=== PATIENT | female | born 1970 | race Caucasian/White ===

== ENCOUNTER 2016-10-25 11:47 | Emergency (ER) | payer BC | END 2016-10-25 13:31 | disposition home or self-care (01) | LOC: D.ER 11:47 | DX: F41.9 Anxiety disorder, unspecified (principal); K21.9 Gastro-esophageal reflux disease without esophagitis ==

== ENCOUNTER 2018-01-21 07:30 | Outpatient (CLI) | payer BC ==
[~2018-01-21] VITALS: Ht 160 cm; Wt 75.9 kg
--- NOTE | ~2018-01-21 | HEMODYNAMI ---
PATIENT:ANIVAL AREVALO MEDICAL RECORD: [id number] : 68 LOCATION:DTRACEY ADMISSION DATE: 01/21/18 Generatedon:01/21/20189:50 Patient name: ANIVAL AREVALO Patient #: [id number] SSN: DO B: 1970 Date of study: 01/21/2018 Page: Of Hemodynamic Procedure Report Patient Data Patient Demographics Procedure consent was obtained First Name: ANIVAL Gender: Female Last Name: IRINA : 1970 Middle Initial: SOPHIA Age: 47 year(s) Patient #: [id number] Race: Unknown Additional ID: [id number] Contact details Address: [address] [place] [address] State: [place] City: [place] Zip code: [address] Past Medical History Allergies Allergen Reaction Date Comments Reported MERARI inhibitors 01/21/2018 Admission Admission Data Admission Date: 01/21/2018 Admission Time: 7:30 Procedure Procedure Types Cath Procedure Diagnostic Procedure LHC LHC w/Coronaries FFR/IVUS FFR Initial Sedation Charges Moderate Sedation up to 45 minutes Procedure Description Procedure Date Procedure Date: 01/21/2018 Procedure Start Time: 8:51 Procedure End Time: 9:49 Procedure Staff Name Function Negro Tellez MD Performing Physician Tamara Chaudhry RT Monitor Florian Washington RN Nurse Osiris Carlson RT Scrub Procedure Data Cath Procedure Fluoroscopy Diagnostic fluoroscopy Total fluoroscopy Time: 5 time: 5 min min Diagnostic fluoroscopy Total fluoroscopy dose: 340 dose: 340 mGy mGy Contrast Material Contrast Material Type Amount (ml) Isovue 300 44 Entry Location Entry Primary Successful Side Size Upsize Upsize Entry Closure Liao ccessful Closure Location (Fr) 1 (Fr) 2 (Fr) Remarks Device Remarks Radial Right 6 Fr Mechanical artery Short Compression Femoral Right 5 Fr 6 Fr Exoseal artery Short Estimated blood loss: 5 ml Diagnostic catheters Device Type Used For End Catheter Placement DIAGNOSTIC Wilian 110cm LV Angiography 5Fr catheter ([id number]) MULTIPACK JL 4.0 5Fr Left Coronary catheter Angiography MULTIPACK 3DRC 5Fr Right Coronary catheter Angiography MULTIPACK Pigtail 5 Fr LV Angiography catheter Procedure Complications No complications Procedure Medications Medication Administration Route Dosage 0.9% NaCl I.V. 100 ml/hr Oxygen etCO2 Nasal cannula 2 l/min Heparin Flush Bag added to field 2 bags (1000units/500ml NS) Lidocaine 2% added to field 20 Radial Cocktail added to field 1 syringe (Verapomil 2mg/Nitro 400mcg/Heparin 1500units) Versed I.V. 2 mg Fentanyl I.V. 50 mcg Radial Cocktail I.A. 1 syringe (Verapomil 2mg/Nitro 400mcg/Heparin 1500units) Nitroglycerin IC/IA I.A. 150 mcg Versed I.V. 1 mg Fentanyl I.V. 25 mcg Nitroglycerin IC/IA I.A. 300 mcg Versed I.V. 1 mg Fentanyl I.V. 25 mcg Heparin Bolus I.V. 1000 units Adenosine (mcg) I.V. 140 mcg/kg/min Adenosine (mcg) 140 mcg/kg/min Nitroglycerin IC/IA I.A. 250 mcg Hemodynamics Rest Heart Rate: 85 (bpm) Pressure Samples Time Site Value (mmHg) Purpose Heart Use Rate(bpm) 9:12 AO 101/64(81) Snapshot 86 9:18 LV 132/-12,10 EDP 77 Gradients Valve Time Site Site Mean SEP/DFP Peak To Heart Use 1 2 (mmHg) (sec/min) Peak Rate (mmHg) (bpm) Aortic 9:18 LV AO 82 Snapshots Pre Cath Intra NCS Post Cath Vital Signs Time Heart Resp SPO2 etCO2 NIBP Rhythm Pain Sedation Rate (ipm) (%) (mmHg) (mmHg) Status Level (bpm) 8:45:40 85 19 100 0 115/71(99) NSR 0 (11) 10(A) , No pain 8:50:14 84 15 99 36 124/68(80) NSR 0 (11) 10(A) , No pain 8:54:55 93 14 100 35.2 110/61(87) NSR 0 (11) 10(A) , No pain 8:59:34 92 14 98 29.2 129/57(89) NSR 0 (11) 10(A) , No pain 9:04:10 85 12 99 31.5 130/72(89) NSR 0 (11) 10(A) , No pain 9:08:47 76 15 97 36.7 111/64(89) NSR 0 (11) 10(A) , No pain 9:13:19 84 17 97 36.8 112/74(83) NSR 0 (11) 10(A) , No pain 9:17:56 77 11 99 39 115/64(90) NSR 0 (11) 10(A) , No pain 9:22:32 77 26 100 37.5 125/69(87) NSR 0 (11) 10(A) , No pain 9:27:08 79 21 100 34.5 117/72(87) NSR 0 (11) 10(A) , No pain 9:31:43 83 30 100 35.2 110/67(97) NSR 0 (11) 10(A) , No pain 9:36:20 111 17 100 25.5 110/63(82) NSR 0 (11) 10(A) , No pain 9:40:54 90 16 98 31.5 120/74(93) NSR 0 (11) 10(A) , No pain 9:45:32 69 16 98 18 101/55(79) NSR 0 (11) 10(A) , No pain Medications Time Medication Route Dose Verified Delivered Reason N otes Effectiveness by by 8:43:56 0.9% NaCl I.V. 100 ml/hr Florian Florian Per physician Padmini Washington RN RN 8:44:08 Oxygen etCO2 2 l/min Florian Florian Per physician Nasal Padmini Washington cannula RN RN 8:44:20 Heparin Flush added 2 bags Florian Florian used for Bag to Lorigan Lorigan procedure (1000units/500ml field COURTNEY VALDEZ NS) 8:44:33 Lidocaine 2% added 20ml vial Florian Florian for local to Lorigan Lorigan anesthetic field VALDEZ RN 8:44:47 Radial Cocktail added 1 syringe Florian Florian used for (Verapomil to Lorigan Lorigan procedure 2mg/Nitro field VALDEZ RN 400mcg/Heparin 1500units) 8:50:25 Versed I.V. 2 mg Florian Florian for sedation Padmini Washington RN, RN 8:50:34 Fentanyl I.V. 50 mcg Florian Florian for sedation Lorigan Lorigan RN RN 8:55:35 Radial Cocktail I.A. 1 syringe Florian Negro for (Verapomil Padmini Tellez MD vasodilation 2mg/Nitro RN 400mcg/Heparin 1500units) 9:00:35 Nitroglycerin I.A. 150 mcg Florian Negro for IC/IA Padmini Tellez MD vasodilation RN 9:00:47 Versed I.V. 1 mg Florian Florian for sedation Padmini Washington RN RN 9:00:56 Fentanyl I.V. 25 mcg Florian Florian for sedation Padmini Washington RN RN 9:02:45 Nitroglycerin I.A. 300 mcg Florian Negro for IC/IA Padmini Tellez MD vasodilation RN 9:06:42 Versed I.V. 1 mg Florian Florian for sedation Padmini Washington RN RN 9:06:49 Fentanyl I.V. 25 mcg Florian Florian for sedation Padmini Washington RN RN 9:34:14 Heparin Bolus I.V. 1,000 Florian Florian for units Padmini Washington anticoagulation RN RN 9:34:56 Adenosine (mcg) I.V. 140 Florian Florian Per protocol mcg/kg/min Padmini Washington RN RN 9:37:31 Adenosine (mcg) stopped 140 Florian Florian Per protocol mcg/kg/min Padmini Washington RN RN 9:40:31 Nitroglycerin I.A. 250 mcg Florian Negro for IC/IA Padmini Tellez MD vasodilation performance test architect Log Time Note 8:22:06 Time tracking: Regular hours (M-F 7:00 - 5:00) 8:22:09 Plan of Care:Hemodynamics will remain stable., Cardiac rhythm will remain stable., Comfort level will be maintained., Respiratory function will remain adequate., Patient/ family verbilizes understanding of procedure., Procedure tolerated without complication., Recovers from procedure without complications.. 8:22:14 Tamara Chaudhry RT(R) sent for patient. Start room use. 8:35:28 Patient received from Pre/Post Procedure Room to CCL 1 Alert and oriented. Tansferred to table in Supine position. 8:35:29 Warm blankets applied, and nicci hugger turned on for patient comfort. 8:35:29 Correct patient and procedure confirmed by team. 8:35:31 Signed procedure consent form obtained from patient. 8:35:32 ECG and BP/O2 sat monitors applied to patient. 8:43:56 0.9% NaCl 100 ml/hr I.V. was administered by Florian Washington RN; Per physician; 8:44:08 Oxygen 2 l/min etCO2 Nasal cannula was administered by Florian Washington RN; Per physician; 8:44:20 Heparin Flush Bag (1000units/500ml NS) 2 bags added to field was administered by Florian Washington RN; used for procedure; 8:44:33 Lidocaine 2% 20ml vial added to field was administered by Florian Washington RN; for local anesthetic; 8:44:47 Radial Cocktail (Verapomil 2mg/Nitro 400mcg/Heparin 1500units) 1 syringe added to field was administered by Florian Washington RN; used for procedure; 8:44:54 Vital chart was started 8:47:41 Full Disclosure recording started 8:47:44 Rhythm: sinus rhythm 8:47:49 Baseline sample Acquired. 8:47:53 H&P Date Dictated: 01/21/2018 Within 30 days and on chart., H&P Addendum completed by physician on day of procedure. (MUST COMPLETE FOR ALL OUTPATIENTS). 8:48:33 Pre-procedure instructions explained to patient. 8:48:33 Pre-op teaching completed and patient verbalized understanding. 8:48:35 Family in patients room. 8:48:37 Patient NPO since Midnight. 8:48:44 Patient allergic to MERARI inhibitors 8:48:46 Is the patient allergic to Iodine/contrast media? No. 8:48:49 Is patient on blood thinner?Yes 8:48:51 ACC The patient was administered the following blood thiners within the last 24 hours: ACCPlavix 8:48:54 Patient diabetic? No. 8:49:01 Previous problem with sedation/anesthesia? No ? 8:49:01 Snore? Yes 8:49:02 Sleep apnea? No 8:49:03 Deviated septum? No 8:49:04 Opens mouth fully? Yes 8:49:04 Sticks out tongue? Yes 8:49:06 Airway obstruction? No ? 8:49:13 Dentures? No IMPLANTS 8:49:16 Pre procedure: right dorsailis pedis pulse 2+ Normal; easily identifiable; not easily obliterated 8:49:18 Modified Malachi's test Ulnar < 7 seconds 8:49:20 Patient pain scale 0/10 ?. 8:49:32 IV patent on arrival in left hand with 0.9% NaCl at [facility]. 8:49:41 Lab results completed and on chart. 8:49:45 Right Radial & Right Groin area was prepped with chlora-prep and draped in sterile fashion 8:49:51 Alarms reviewed by R. N. 8:49:52 Sharps counted by scrub and verified by R.N. 8:49:53 Final Timeout: patient, procedure, and site verified with staff and physician. All members of the team are in agreement. 8:49:56 Right Radial site verified by team. 8:49:58 Physical assessment completed. ASA score P 2 - A patient with mild systemic disease as per Negro Tellez MD. 8:50:01 Sedation plan: IV Moderate Sedation Medication:Versed, Fentanyl 8:50:05 Use device set Radial Dx or PCI 8:50:06 ACIST Syringe (00569) opened to sterile field. 8:50:07 Medline Cath Pack ([id number]) opened to sterile field. 8:50:07 Bag Decanter (2002S) opened to sterile field. 8:50:08 DIAGNOSTIC WIRE .035 260cm J wire (310580) opened to sterile field. 8:50:08 ACIST Hand Control (10030) opened to sterile field. 8:50:09 ACIST Manifold (24372) opened to sterile field. 8:50:10 MBrace Wrist Support ([id number]) opened to sterile field. 8:50:12 SHEATH 6Fr Prelude Radial ([id number]) opened to sterile field. 8:50:25 Versed 2 mg I.V. was administered by Florian Washington RN; for sedation; 8:50:34 Fentanyl 50 mcg I.V. was administered by Florian Washington RN; for sedation; 8:51:43 Procedure started. 8:51:48 Local anesthetic to right radial artery with Lidocaine 2% by Negro Tellez MD.INITIAL ACCESS ONLY 8:52:53 Zero performed for pressure channel P1 8:53:01 Zero performed for pressure channel P1 8:53:35 Zero performed for pressure channel P1 8:54:54 A 6 Fr Short sheath was inserted into the Right Radial artery 8:55:35 Radial Cocktail (Verapomil 2mg/Nitro 400mcg/Heparin 1500units) 1 syringe I.A. was administered by Negro Tellez MD; for vasodilation; 8:59:39 Glidewire wire advanced. 9:00:35 Nitroglycerin IC/IA 150 mcg I.A. was administered by Ngero Tellez MD; for vasodilation; 9:00:47 Versed 1 mg I.V. was administered by Florian Washington RN; for sedation; 9:00:56 Fentanyl 25 mcg I.V. was administered by Florian Washington RN; for sedation; 9:02:45 Nitroglycerin IC/IA 300 mcg I.A. was administered by Negro Tellez MD; for vasodilation; 9:03:46 A DIAGNOSTIC Ayeah Games 110cm 5Fr catheter (812836) was advanced over the wire and used for LV Angiography.REMOVED, UNABLE TO ADVANCE CATHETER DUE TO VASOSPASM 9:04:50 SHEATH Prelude 5Fr 0.035 (DJY-0D-66-035) opened to sterile field. 9:05:00 MICROPUNCTURE 4FR Cook (A94566) opened to sterile field. 9:05:01 SHEATH 5Fr Prelude ([id number]) opened to sterile field. 9:05:09 Use device set Multipack Set 9:05:13 DIAGNOSTIC Multipack 5Fr catheter set (WD2207) opened to sterile field. 9:05:27 Local anesthetic to right femoral artery with Lidocaine 2% by Negro Tellez MD.ADDITIONAL ACCESS 9:06:42 Versed 1 mg I.V. was administered by Florian Washington RN; for sedation; 9:06:49 Fentanyl 25 mcg I.V. was administered by Florian Washington RN; for sedation; 9:10:55 Access obtained with 4Fr micropunture. 9:11:29 A 5 Fr sheath was inserted into the Right Femoral artery 9:12:20 A MULTIPACK JL 4.0 5Fr catheter was advanced over the wire and used for Left Coronary Angiography. 9:14:10 Catheter removed. 9:15:16 A MULTIPACK 3DRC 5Fr catheter was advanced over the wire and used for Right Coronary Angiography. 9:16:11 Catheter removed. 9:16:43 A MULTIPACK Pigtail 5 Fr catheter was advanced over the wire and used for LV Angiography. 9:18:16 LV gram done using CHAMBERS 9:18:18 LV hemodynamics recorded. 9:18:21 Injector settings: Ml/sec: 12, Volume: 8, 9:18:41 Catheter removed. 9:19:08 Use device set NORRED PCI 9:19:11 INFLATOR Merit BasixCompak (FI6927) opened to sterile field. 9:19:11 COPILOT Valve Control (6484970) opened to sterile field. 9:19:14 SHEATH Prelude 6Fr 0.035 (TBN-3C-71-035) opened to sterile field. 9:19:18 BMW 190cm Austin 2 J wire ([id number]) opened to sterile field. 9:20:21 Sheath upsized to a 6 Fr Short. 9:20:49 6 Fr XBLAD 3.5 SH guide catheter was inserted over the wire 9:24:34 TrialScope Verrata Plus pressure wire (28432O) opened to sterile field. 9:25:18 VERRATA FFR wire advanced. 9:34:14 Heparin Bolus 1,000 units I.V. was administered by Florian Washington RN; for anticoagulation; 9:34:56 Adenosine (mcg) 140 mcg/kg/min I.V. was administered by Florian Washington RN; Per protocol; 9:37:31 Adenosine (mcg) 140 mcg/kg/min stopped was administered by Florian Washington RN; Per protocol; 9:38:22 Wire removed. 9:38:23 Guide catheter removed. 9:38:34 Sheath removed intact; hemostasis achieved with Exoseal to the Right Femoral artery. 9:38:44 Procedure ended.(Physican Out) 9:39:44 Fluoroscopy time 05.00 minutes. 9:39:49 Fluoroscopy dose: 340 mGy 9:39:49 Flurop Dose total: 340 9:40:31 Nitroglycerin IC/IA 250 mcg I.A. was administered by Negro Tellez MD; for vasodilation; 9:40:54 Contrast amount:Isovue 300 44ml. 9:40:56 Sharps counted by scrub and verified by R.N. 9:40:57 Insertion/operative site no bleeding no hematoma. 9:41:00 Post-op/insertion site Right Femoral artery dressed using a 4 x 4 and Tegaderm. 9:41:04 Post right femoral artery:stable, clean and dry 9:41:05 Post Procedure Pulses reassessed and unchanged 9:41:14 Post-procedure physical assessment completed. ASA score P 2 - A patient with mild systemic disease as per Negro Tellez MD. 9:41:18 Post procedure rhythm: unchanged. 9:41:40 Estimated blood loss: 5 ml 9:41:42 Post procedure instruction explained to patient.Patient verbalizes understanding. 9:42:18 Procedure type changed to Cath procedure, Diagnostic procedure, LHC, LHC w/Coronaries, FFR/IVUS, FFR Initial, Sedation Charges, Moderate Sedation up to 45 minutes 9:42:29 Procedure Complication : No complications 9:42:35 See physician's report for complete and final results. 9:43:36 EXOSEAL 6Fr (EX600) opened to sterile field. 9:43:39 Tegaderm 4 x 4 (1626W) opened to sterile field. 9:43:51 TR BAND Standard ([id number]) opened to sterile field. 9:44:12 GUIDE 6FR XBLAD 3.5 SH catheter ([id number]) opened to sterile field. 9:44:27 Sheath removed intact; hemostasis achieved with Mechanical Compression to the Right Radial artery. 9:44:32 TR band inflated with 9cc of air. 9:49:36 Procedure and supply charges have been captured, reviewed, submitted and are correct. 9:49:37 Vital chart was stopped 9:49:39 Report given to Pre/Post Procedure Room. 9:49:42 Patient transfered to Pre/Post Procedure Room with Stretcher. 9:49:56 Procedure ended. 9:49:56 Full Disclosure recording stopped 9:50:00 End room use (Document Last) Device Usage Item Name Manufacture Quantity Catalog Number Hospital Part Current Minimal Lot# / Charge Number Stock Stock Serial# Code ACIST Syringe Acist 1 47221 382703 908451 827824 20 (32488) [employer] Medline Cath Cardinal 1 [id number] 622410 50724 626225 5 CFEngine Health ([id number]) Bag Decanter Microtek 1 404193 55272 756429 5 () [employer] Inc. DIAGNOSTIC WIRE St Dre 1 345440 953598 531704 459684 30 .035 260cm J wire (802274) ACIST Hand Acist 1 53440 425014 046054 590142 5 Control (29640) Medical Systems Inc ACIST Manifold Acist 1 95100 635321 182595 152994 5 (02011) Medical Systems Inc MBrace Wrist Advanced 1 140-0250-00 670859 36864 080835 5 Support Vascular (925684810) Dynamics SHEATH 6Fr Merit 1 [id number] 797582 037113 580629 5 Prelude Radial Medical ([id number]) DIAGNOSTIC Terumo 1 40-9252 878844 361580 153226 5 Wilian 110cm 5Fr catheter (645284) SHEATH Prelude Merit 1 CZI-3C-77-035 017126 627481 583146 5 5Fr 0.035 Medical (QZV-5F-16-035) MICROPUNCTURE Cook Medical 1 O22026 911858 252618 168885 5 4FR Cook (Z10959) SHEATH 5Fr Merit 1 [id number] 199978 945567 535182 5 Prelude Medical ([id number]) DIAGNOSTIC Cardinal 1 XR4745 171621 23983 422908 30 Multipack 5Fr Health catheter set (ZB8272) MULTIPACK JL Cardinal 1 477867 5 4.0 5Fr Health catheter MULTIPACK 3DRC Cardinal 1 781351 5 5Fr catheter Health MULTIPACK Cardinal 1 688873 5 Pigtail 5 Fr Health catheter INFLATOR Merit Merit 1 BQ9640 007611 051037 795699 15 BasixCompak Medical (AN9687) COPILOT Valve Russ 1 1023441 111809 236172 284102 5 Control Vascular (8738164) SHEATH Prelude Merit 1 CSC-9H-49-35 938514 9224537 213402 5 6Fr 0.035 Medical (PUI-7H-77-035) BMW 190cm Russ 1 [id number] 136026 26585 489057 5 Austin 2 J Vascular wire (5712289F) [place] Verrata [place] 1 08603K 638212 6389540 320799 5 Plus pressure wire (17714R) EXOSEAL 6Fr Cardinal 1 EX600 800815 439271 269108 10 (EX600) Health Tegaderm 4 x 4 3M 1 1626W 626347 688510 764726 5 (1626W) TR BAND Terumo 1 ORC29-LLE 857741 833261 265954 40 Standard (WFI75OLH) GUIDE 6FR XBLAD Cardinal 1 16074639 713022 488605 776888 3 3.5 catheter Health (43243294) Signature Audit [place] Time Signature Unsigned Intra-Procedure 01/21/2018 Tamara 9:50:11 AM Counts RT(R) Signatures Monitor : Tamara Signature : Counts RT Date : Time : [address] [place] [address]
[2018-01-21 07:30] VITALS: BP 130/78; Ht 160 cm; Wt 75.9 kg
[~2018-01-21 07:30] MED LIST: CRESTOR10 MG PO; CYMBALTA60 MG PO; EXFORGE 5-160 M1 TAB PO; PEPCID20 MG PO
[2018-01-21 07:41] LABS: BASOPHILS 0.6 % (0-2); EOSINOPHILS 6.4 % (0-7); HEMATOCRIT 35.7 % (36.0-48.0); HEMOGLOBIN 11.6 g/dL (12-16); IMMATURE GRANULOCYTES 0.2 % (0-5); LYMPHOCYTES 21.5 % (15-50); MCH 28.4 pg (26.0-34.0); MCHC 32.5 g/dL (31.0-37.0); MCV 87.5 fL (80.0-100.0); MEAN PLATELET VOLUME 10.7 fL (7.4-10.4); MONOCYTES 6.8 % (2-11); NEUTROPHILS 64.5 % (40-80); PLATELET COUNT 325 10x3/uL (130-400); RBC 4.08 10x6/uL (4.00-5.40); RDW 13.4 % (11.5-14.5); WBC 9.6 10x3/uL (4.8-10.8)
[2018-01-21 08:27] LABS: CALC OSMOLALITY 283 mosm/kg (275-300); CARBON DIOXIDE 23.3 mmol/L (21.0-32.0); CHLORIDE - SERUM 107 mmol/L (98-107); CREATININE - SERUM 0.7 mg/dL (0.6-1.3); GLUCOSE 117 mg/dL (74-106); POTASSIUM - SERUM 3.7 mmol/L (3.5-5.1); SODIUM 142 mmol/L (136-145); UREA NITROGEN 12 mg/dL (7-18); eGFR NON AFRICAN AMERICAN > 90 mL/min (90-120)
[2018-01-21 08:44] LABS: HCG SERUM NEGATIVE (NEGATIVE)
== END 2018-01-21 14:00 | disposition home or self-care (01) ==
LOC: D.CATH 07:30
PROVIDERS: Internal Medicine Cardiovascular Disease
DX: I25.10 Atherosclerotic heart disease of native coronary artery without angina pectoris (principal); Z01.812 Encounter for preprocedural laboratory examination

== ENCOUNTER → 2020-02-29 11:15 | Outpatient (CLI) | payer BC ==
[2018-01-21 07:30] VITALS: BMI 29.6
== END | disposition home or self-care (01) ==
LOC: D.US 11:15
PROVIDERS: ATTEND Obstetrics & Gynecology
DX: R10.2 Pelvic and perineal pain (principal)

== ENCOUNTER 2020-04-30 07:21 | Day surgery (SDC) | payer BC ==
[~2020-04-30] VITALS: Ht 160 cm; Wt 74.5 kg
[2020-04-30 07:47] LABS: HEMATOCRIT 37.3 % (36.0-48.0); HEMOGLOBIN 12.3 g/dL (12-16); MCH 28.7 pg (26.0-34.0); MCV 87.1 fL (80.0-100.0); MEAN PLATELET VOLUME 10.4 fL (7.4-10.4); RBC 4.28 10x6/uL (4.00-5.40); RDW 13.2 % (11.5-14.5); WBC 8.5 10x3/uL (4.8-10.8)
[2020-04-30] MEDS ORDERED: KLONOPIN0.5 MG PO (08:08)
[2020-04-30 08:26] VITALS: BP 129/80; Ht 160 cm; Wt 74.5 kg
[2020-04-30 09:48] LABS: HCG URINE NEGATIVE (NEGATIVE)
[2020-04-30 10:33] LABS: HCG SERUM NEGATIVE (NEGATIVE)
--- NOTE | 2020-04-30 12:32 | NUR ---
1215 PCXR COMPLETED. XRAY READ AT BEDSIDE BY DR JOSHI 1220 PT STATES HER PAIN LEVEL HAS GONE DOWN TO A 1 OUT OF 10 AFTER PASSING FLATUS. 1225 IV DC'D. CATHETER TIP INTACT. NO BLEEDING AT SITE. BANDAID APPLIED.
--- NOTE | 2020-05-01 17:42 | OP ---
PATIENT NAME: ANIVAL AREVALO MEDICAL RECORD: [id number] :68 LOCATION:D.OPS ADMISSION DATE: SURGEON: ROGELIO JOSHI MD DATE OF OPERATION: 04/30/2020 PREOPERATIVE DIAGNOSIS: Dysphagia. POSTOPERATIVE DIAGNOSES: 1. Dysphagia. 2. Three benign appearing lesions at 15 cm from incisor. 3. LA grade II distal esophagitis. 4. No hiatal hernia. 5. Questionable stricture at the esophagogastric junction. 6. Linear engel on the stomach, which do not appear to be abrasions that are best seen with narrow band imaging. I biopsied one of these. PROCEDURE: 1. Esophagogastroduodenoscopy with biopsies. 2. Esophageal dilation to 54-Omani with a pdvqait-son-vtjprzro balloon. SURGEON: Rogelio Joshi MD EXTRACT WRINGER: None. BLOOD LOSS: Minimal. COMPLICATIONS: None. ENDOSCOPIC COURSE: The patient was conveyed to endoscopy suite electively on 04/30/2020. IV sedation was induced by the anesthesia staff. A bite block was inserted. A gastroscope was inserted into the mouth. It was advanced easily into the hypopharynx. The esophagus was easily intubated as were the stomach and duodenum. Upon withdrawal, retroflexed and angulus views were obtained. Antral biopsies were obtained. On narrow band imaging, there was a linear area that I performed cold endoscopic biopsies of. I then withdrew into the cardia of the stomach. I sequentially dilated the entire length of the esophagus to 54-Omani through armgybf-fzu-fqlwbdol balloon. The balloon was then removed. I advanced the gastroscope again. There had been no evidence of false passage or perforation. Distal esophageal biopsies were obtained to rule out Vincent esophagus. At 15 cm, there were 3 lesions best seen with narrow band imaging and I am not sure what these represent. They could be some type of flat polyp. I performed cold endoscopic biopsy on one of these. The endoscope was then withdrawn under direct vision. I will see the patient in my office in 2-3 weeks. TRANSINT:[id number] Voice Confirmation ID: [id number] DOCUMENT ID: [id number] OPERATIVE REPORT [id number] ANIVAL AREVALO ROBERT MD at 6711 CC: CARY MAR DO [id number] DICTATION DATE: 04/30/20 0769 MENTAL HEALTH COORDINATOR: 10/06/20 2135 DEP SDC 04/30/20 [facility] [address] [place] [address]
--- NOTE | 2020-05-01 18:25 | HP ---
PATIENT: ANIVAL AREVALO MEDICAL RECORD: [id number] ACCOUNT: [id number] LOCATION:EZE : 68 ADMISSION DATE: 04/30/20 PCP: CARY MAR DO HISTORY AND PHYSICAL EXAMINATION HISTORY OF PRESENT ILLNESS: She is here for EGD with esophageal dilation. 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 HOME MEDICATIONS: Please see the nursing list. ALLERGIES: No known drug allergies. PAST MEDICAL AND SURGICAL HISTORY: Hypercholesterolemia, gastroesophageal reflux, arthritis. SOCIAL HISTORY: Nonsmoker. REVIEW OF SYSTEMS: Negative for diabetes or thyroid problems. PHYSICAL EXAMINATION: GENERAL: The patient does not appear acutely ill. She does not appear chronically ill. VITAL SIGNS: Reviewed. EARS: External ears appear normal. EYES: Extraocular movements are intact. NECK: Trachea is midline. CHEST: No intercostal retractions. PULMONARY: Nonlabored, no stridor. IMPRESSION: Dysphagia. PLAN: EGD with esophageal dilation. TRANSINT:[id number] Voice Confirmation ID: [id number] DOCUMENT ID: [id number] ALEX JOSHI MD at 1825 CC: [id number] DICTATION DATE: 04/30/20 1108 LATIN TEACHER: 04/30/20 1116 [facility] 04/30/20 [address] [place] [address]
== END 2020-04-30 12:41 | disposition home or self-care (01) ==
LOC: D.OPS 07:21
PROVIDERS: Anesthesiology; ATTEND Surgery
DX: R13.10 Dysphagia, unspecified (principal); K22.2 Esophageal obstruction; D17.22 Benign lipomatous neoplasm of skin and subcutaneous tissue of left arm